=== PATIENT | female | born 1970 | race Caucasian/White ===

== ENCOUNTER 2017-02-22 19:26 | Emergency (ER) | payer BC, OTHER ==
[~2017-02-22] VITALS: Ht 165.1 cm; Wt 54.5 kg
[2017-02-22 19:29] VITALS: TEMP 37; Ht 165.1 cm; Wt 54.5 kg
[2017-02-22] MEDS ORDERED: KETOROLAC TROMETHAMINE 30 MG/ML VIAL IV STA (19:41)
[2017-02-22] MEDS ORDERED: DiphenhydrAMINE HCL 50 MG/ML VIAL IV STA (19:41)
[2017-02-22] MEDS ORDERED: SODIUM CHLORIDE 0.9% 1000ML 1,000 ML IV STA (19:41)
[2017-02-22] MEDS ORDERED: DEXAMETHASONE SOD INJ 10 MG/ML VIAL IV STA (19:41)
[2017-02-22] MEDS ORDERED: PROCHLORPERAZINE 5 MG/ML 2 ML VIAL IV STA (19:41)
--- NOTE | 2017-02-22 19:45 | EMERGENCY ROOM VISIT NOTE ---
History Report prepared by Delgado: Urszula Parker Under the Supervision of: Dr. Anthony Carrillo M.D. First contact with patient: 19:33 Chief Complaint: HYPERTENSION Stated Complaint: HIGH BP W/HEADACHE,DIZZY History of Present Illness The patient is a 46 year old female who presents to the Emergency Room with complaints of a constant headache beginning one week prior to arrival. She describes her headache to be at the base of her skull. Today she has been experiencing dizziness and is disoriented. She also reports a subjective low grade fever. The patient notes pain when turning her head to the right. She also notes high blood pressure today. She denies taking medication for blood pressure or headache symptoms similar to this before. The patient's last dosage of Ibuprofen was 3pm today. Source of History: patient Onset: one week [employer] Position: other (global) Quality: other (headache) Timing: constant Associated Symptoms: + fevers (subjective low grade) Note: Patient is experiencing dizziness, disoriented, and pain with movement of head to the right. Review of Systems See HPI for pertinent positives & negatives. A total of 10 systems reviewed and were otherwise negative. Past Medical & Surgical Medical Problems: (1) GERD (gastroesophageal reflux disease) (2) Neuropathy Social History Smoking Status: Current Every Day Smoker Marital Status: Housing Status: lives with family Current/Historical Medications Scheduled Gabapentin (Neurontin), 800 MG PO QID Omeprazole (Prilosec), 40 MG PO BID Ranitidine Hcl (Zantac), 300 MG PO BID Sertraline (Zoloft), 100 MG PO DAILY Scheduled PRN Lorazepam (Ativan), 0.5 MG PO TID PRN for Anxiety Allergies Coded Allergies: No Known Allergies (Verified Allergy, Unknown, 04/14/04) Uncoded Allergies: NKDA (Allergy, Unknown, 03/17/04) Physical Exam Vital Signs Date Time Temp Pulse Resp B/P Pulse Ox O2 Delivery O2 Flow Rate FiO2 02/22/17 22:17 66 18 137/89 95 02/22/17 21:34 67 18 131/93 96 Room Air 02/22/17 20:38 61 18 142/85 97 Room Air 02/22/17 20:14 96 Room Air 02/22/17 20:14 97 Room Air 02/22/17 20:12 63 02/22/17 20:04 60 18 171/104 99 Room Air 02/22/17 19:29 37.0 70 18 166/97 95 Room Air Physical Exam GENERAL: Patient is a healthy-appearing well-nourished HEAD: Normocephalic atraumatic. No evidence of meningitis or cephalitis. EYES: Ocular movements intact pupils equal and react to light OROPHARYNX mucous membranes are moist no exudates present no erythema or edema present NECK: Supple no nuchal rigidity CHEST: Good equal expansion LUNGS: Clear and equal to auscultation CARDIAC: Normal S1 and S2 ABDOMEN: Soft nontender no guarding BACK: No CVA tenderness EXTREMITIES: No pain upon palpation normal muscle strength in all groups no clubbing cyanosis or edema NEURO: Patient is following commands is answering questions appropriately. Alert and oriented x3 Cranial Nerves 2-12 grossly intact Medical Decision & Procedures Laboratory Results 02/22/17 19:48 Red Blood Count 4.65, Mean Corpuscular Volume 81.1, Mean Corpuscular Hemoglobin 27.3, Mean Corpuscular Hemoglobin Concent 33.7, Mean Platelet Volume 11.5, Neutrophils (%) (Auto) 43.7, Lymphocytes (%) (Auto) 40.1, Monocytes (%) (Auto) 11.0, Eosinophils (%) (Auto) 4.5, Basophils (%) (Auto) 0.6, Neutrophils # (Auto ) 3.56, Lymphocytes # (Auto) 3.28, Monocytes # (Auto) 0.90, Eosinophils # (Auto ) 0.37, Basophils # (Auto) 0.05 02/22/17 19:48 Test 02/22/17 19:48 02/22/17 20:34 White Blood Count 8.17 K/uL (4.8-10.8) Red Blood Count 4.65 M/uL (4.2-5.4) Hemoglobin 12.7 g/dL (12.0-16.0) Hematocrit 37.7 % (37-47) Mean Corpuscular Volume 81.1 fL (80-100) Mean Corpuscular Hemoglobin 27.3 pg (25-34) Mean Corpuscular Hemoglobin Concent 33.7 g/dl (32-36) Platelet Count 208 K/uL (130-400) Mean Platelet Volume 11.5 fL (7.4-10.4) Neutrophils (%) (Auto) 43.7 % Lymphocytes (%) (Auto) 40.1 % Monocytes (%) (Auto) 11.0 % Eosinophils (%) (Auto) 4.5 % Basophils (%) (Auto) 0.6 % Neutrophils # (Auto) 3.56 K/uL (1.4-6.5) Lymphocytes # (Auto) 3.28 K/uL (1.2-3.4) Monocytes # (Auto) 0.90 K/uL (0.11-0.59) Eosinophils # (Auto) 0.37 K/uL (0-0.5) Basophils # (Auto) 0.05 K/uL (0-0.2) RDW Standard Deviation 48.8 fL (36.4-46.3) RDW Coefficient of Variation 16.4 % (11.5-14.5) Immature Granulocyte % (Auto) 0.1 % Immature Granulocyte # (Auto) 0.01 K/uL (0.00-0.02) Prothrombin Time 10.0 SECONDS (9.0-12.0) Prothromb Time International Ratio 0.9 (0.9-1.1) Activated Partial Thromboplast Time 27.2 SECONDS (21.0-31.0) Partial Thromboplastin Ratio 1.0 Anion Gap 7.0 mmol/L (3-11) Est Creatinine Clear Calc Drug Dose 77.5 ml/min Estimated GFR () 105.7 Estimated GFR (Non- 91.2 BUN/Creatinine Ratio 12.1 (10-20) Calcium Level 8.7 mg/dl (8.5-10.1) Total Bilirubin 0.2 mg/dl (0.2-1) Direct Bilirubin < 0.1 mg/dl (0-0.2) Aspartate Amino Transf (AST/SGOT) 18 U/L (15-37) Alanine Aminotransferase (ALT/SGPT) 17 U/L (12-78) Alkaline Phosphatase 76 U/L (45-117) Total Protein 7.8 gm/dl (6.4-8.2) Albumin 3.9 gm/dl (3.4-5.0) Lipase 244 U/L (73-393) Thyroid Stimulating Hormone (TSH) 3.250 uIu/ml (0.300-4.500) Lyme Disease IgG Antibody NEG (NEG) Urine Color YELLOW Urine Appearance CLEAR (CLEAR) Urine pH 6.5 (4.5-7.5) Urine Specific [place] 1.006 (1.000-1.030) Urine Protein NEG (NEG) Urine Glucose (UA) NEG (NEG) Urine Ketones NEG (NEG) Urine Occult Blood 1+ (NEG) Urine Nitrite NEG (NEG) Urine Bilirubin NEG (NEG) Urine Urobilinogen NEG (NEG) Urine Leukocyte Esterase NEG (NEG) Urine WBC (Auto) 0 /hpf (0-5) Urine RBC (Auto) 0-4 /hpf (0-4) Urine Hyaline Casts (Auto) 0 /lpf (0-5) Urine Epithelial Cells (Auto) 0-5 /lpf (0-5) Urine Bacteria (Auto) NEG (NEG) Labs reviewed by ED physician. Medications Administered Medications (Trade) Dose Ordered Sig/Manju Route Start Time Stop Time Status Last Admin Dose Admin Sodium Chloride (Nss 1000ml) 1,000 ml @ 999 mls/hr Q1H1M STAT IV 02/22/17 19:41 02/22/17 20:41 DC 02/22/17 20:07 999 MLS/HR Ketorolac Tromethamine (Toradol Inj) 30 mg NOW STAT IV 02/22/17 19:41 02/22/17 19:44 DC 02/22/17 20:07 30 MG Prochlorperazine Edisylate (Compazine Inj) 5 mg NOW STAT IV 02/22/17 19:41 02/22/17 19:44 DC 02/22/17 20:08 5 MG Diphenhydramine HCl (Benadryl Inj) 50 mg NOW STAT IV 02/22/17 19:41 02/22/17 19:44 DC 02/22/17 20:07 50 MG Dexamethasone Sodium Phosphate (Decadron Inj) 10 mg NOW STAT IV 02/22/17 19:41 02/22/17 19:44 DC 02/22/17 20:08 10 MG ECG Indication: other (headache) Rate (beats per minute): 60 Rhythm: normal sinus Findings: no acute ischemic change, no ectopy ED Course 1934: Past medical records reviewed. The patient was evaluated in room C10. A complete history and physical examination was performed. 1940: Decadron Inj 10 mg IV, Benadryl Inj 50 mg IV, Compazine Inj 5 mg IV, Toradol Inj 30 mg IV, Sodium Chloride 1,000 ml @ 999 mls/hr IV. Medical Decision The patient is a 46 year old female who presents to the ED with complaints of a headache. This is a 46-year-old female who presents emergency department complaining of headache. She has no evidence of meningitis or encephalitis on examination. The patient also has elevated blood pressure in the emergency department. An IV was established, patient given normal saline bolus, Toradol, Compazine, Benadryl. She has a GCS of 15 however using shared medical decision-making, the patient was sent for CAT scan of the head and she has never had a headache like this previously. The patient's CAT scan was read as normal and she does not have an elevation in her red blood count white blood count. The patient's blood pressure did fall after being given pain medication however I stressed the need for follow-up with the patient's primary care physician over her hypertension. Patient will return if she develops severe headache or neck pain. Patient was in agreement with the treatment plan. Impression Primary Impression: Headache Scribe Attestation The scribe's documentation has been prepared under my direction and personally reviewed by me in its entirety. I confirm that the note above accurately reflects all work, treatment, procedures, and medical decision making performed by me. Departure Information Referrals Brandon Bhatia M.D. (PCP) Patient Instructions My [facility] Problem Qualifiers Primary Impression: Headache Headache type: unspecified Headache chronicity pattern: acute headache Intractability: not intractable Qualified Codes: R51 - Headache
[2017-02-22 19:57] LABS: BASO % 0.6 %; BASO ABS # 0.05 K/uL (0-0.2); COMPLETE YES; EOS % 4.5 %; HEMATOCRIT 37.7 % (37-47); IG% 0.1 %; LYMPH % 40.1 %; LYMPH ABS # 3.28 K/uL (1.2-3.4); MEAN CELL VOLUME 81.1 fL (80-100); MEAN CORPUSCULAR HEMOGLOBIN 27.3 pg (25-34); MEAN CORPUSCULAR HGB CONC 33.7 g/dl (32-36); MEAN PLATELET VOLUME 11.5 fL (7.4-10.4); NEUT % 43.7 %; PLATELET COUNT 208 K/uL (130-400); RED BLOOD COUNT 4.65 M/uL (4.2-5.4); WHITE BLOOD COUNT 8.17 K/uL (4.8-10.8)
[2017-02-22 20:07] LABS: INR 0.9 (0.9-1.1)
[2017-02-22 20:14] VITALS: O2SAT 97
[2017-02-22 20:14] LABS: ALT/SGPT 17 U/L (12-78); BLOOD UREA NITROGEN 9 mg/dl (7-18); BUN/CREATININE RATIO 12.1 (10-20); CALCIUM 8.7 mg/dl (8.5-10.1); CARBON DIOXIDE 28 mmol/L (21-32); CHLORIDE 104 mmol/L (98-107); CREATININE 0.78 mg/dl (0.60-1.20); GLUCOSE 77 mg/dl (70-99); POTASSIUM 3.7 mmol/L (3.5-5.1); SODIUM 139 mmol/L (136-145)
--- NOTE | 2017-02-22 20:14 | DIAGNOSTIC IMAGING REPORT ---
CHEST ONE VIEW PORTABLE CLINICAL HISTORY: Severe hypertension. COMPARISON STUDY: No previous studies for comparison. FINDINGS: There is no pneumothorax or pleural effusion. Linear bibasilar opacities are consistent with atelectasis. Cardiac size is normal. Mediastinal contours are normal. There is no evidence of pulmonary edema. There may be mild lung hyperinflation. IMPRESSION: No acute cardiopulmonary findings. Electronically signed by: Milton Gipson M.D. 02/22/2017 8:12 PM Dictated Date/Time: 02/22/2017 8:12 PM
[2017-02-22 20:24] LABS: ALKALINE PHOSPHATASE 76 U/L (45-117); AST/SGOT 18 U/L (15-37)
[2017-02-22] MEDS ORDERED: SERT-234 PO (20:24)
[2017-02-22] MEDS ORDERED: OMEP40CA41 PO (20:24)
[2017-02-22] MEDS ORDERED: RANI150T3 PO (20:24)
[2017-02-22] MEDS ORDERED: LORA-741 PO (20:24)
[2017-02-22] MEDS ORDERED: GABA800T PO (20:24)
[2017-02-22 20:46] LABS: URINE APPEARANCE CLEAR (CLEAR); URINE BILIRUBIN NEG (NEG); URINE COLOR YELLOW; URINE EPITHELIAL CELL AUTO 0-5 /lpf (0-5); URINE NITRITE NEG (NEG); URINE PH 6.5 (4.5-7.5); URINE SPECIFIC GRAVITY 1.006 (1.000-1.030); UROBILINOGEN NEG (NEG)
[2017-02-22 20:48] LABS: LYME DISEASE AB IGG NEG (NEG)
[2017-02-22 20:55] LABS: MANUAL MICROSCOPIC REQUIRED? NO; REVIEW REQ? NO
[2017-02-22 20:56] LABS: LYME DISEASE AB IGM EQUIVOCAL (NEG)
--- NOTE | 2017-02-22 21:22 | DIAGNOSTIC IMAGING REPORT ---
CT OF THE HEAD WITHOUT CONTRAST CLINICAL HISTORY: Headache. Hypertension. COMPARISON STUDY: No previous studies for comparison. CT DOSE: 537.48 mGy.cm TECHNIQUE: Helical axial images of the head were obtained without IV contrast. Automated exposure control was utilized for the study. FINDINGS: No acute intracranial hemorrhage, midline shift or mass effect is present. Ventricular system is normal. Basilar cisterns are patent. There are no extra-axial collections. Barrett-white differentiation is maintained. There are no findings to suggest acute dural sinus thrombosis or acute territorial infarct. Visual portions of the sinuses and mastoid air cells are clear. There are no calvarial abnormalities. IMPRESSION: No acute intracranial findings. Electronically signed by: Milton Gipson M.D. 02/22/2017 9:20 PM Dictated Date/Time: 02/22/2017 9:19 PM
[2017-02-22 22:17] VITALS: BP 137/89; PULSE 66; O2SAT 95
[2017-02-27 10:39] LABS: 18KDIGG BAND NONREACTIVE (NONREACTIVE); 23KDIGG BAND REACTIVE (NONREACTIVE); 23KDIGM BAND NONREACTIVE (NONREACTIVE); 28KDIGG BAND NONREACTIVE (NONREACTIVE); 30KDIGG BAND NONREACTIVE (NONREACTIVE); 39KDIGG BAND NONREACTIVE (NONREACTIVE); 39KDIGM BAND NONREACTIVE (NONREACTIVE); 41KDIGG BAND NONREACTIVE (NONREACTIVE); 41KDIGM BAND REACTIVE (NONREACTIVE); 45KDIGG BAND NONREACTIVE (NONREACTIVE); 58KDIGG BAND NONREACTIVE (NONREACTIVE); 66KDIGG BAND NONREACTIVE (NONREACTIVE); 93KDIGG BAND NONREACTIVE (NONREACTIVE)
== END 2017-02-22 23:14 | disposition home or self-care (01) ==
LOC: C.EDB 19:27 → C.EDC 23:14
DX: R51 Headache (principal); I10 Essential (primary) hypertension; K21.9 Gastro-esophageal reflux disease without esophagitis; G62.9 Polyneuropathy, unspecified; F17.200 Nicotine dependence, unspecified, uncomplicated